=== PATIENT | female | born 1960 | race Caucasian/White ===

== ENCOUNTER 2016-08-06 08:07 | Emergency (ER) | payer OTHER ==
[~2016-08-06] VITALS: Ht 162.6 cm; Wt 65.0 kg
[~2016-08-06 08:07] MED LIST: IBUP-232 PO; PERC10TA27 PO; PROM25SU8 PO; TAMS0.4C67 PO; Z.0.NO CURRENT MEDS
[2016-08-06 08:12] VITALS: BP 121/80; PULSE 101; RESP 14; TEMP 98.2; O2SAT 94
[2016-08-06] MEDS ORDERED: LISI2.5T3 PO (08:28)
[2016-08-06] MEDS ORDERED: OXYB5TAB10 PO (08:28)
[2016-08-06] MEDS ORDERED: KETO10 PO (08:28)
[2016-08-06] MEDS ORDERED: TAMS0.4C4 PO (08:28)
[2016-08-06] MEDS ORDERED: SODIUM CHLOR 0.9% 1000 ML INJ 1,000 ML IV SCH (08:40)
[2016-08-06] MEDS ORDERED: SODIUM CHLORIDE 0.9% FLUSH 5 ML FLUSH IVF PRN (08:45)
[2016-08-06] MEDS ORDERED: MORPHINE SULFATE 4 MG/ML INJ IV PUSH ONE (08:45)
[2016-08-06] MEDS ORDERED: KETOROLAC TROMETHAMINE 30 MG/ML (IVP) VIAL IVP ONE (08:45)
[2016-08-06] MEDS ORDERED: ONDANSETRON HCL 4 MG/2 ML VIAL IVP ONE (08:45)
--- NOTE | 2016-08-06 08:45 | PD ---
HPI Chief Complaint: Flank/Kidney Pain Time Seen by Provider: 08:21 Travel History International Travel<30 days: No Contact w/Intl Traveler<30days: No Traveled to known affect area: No History of Present Illness HPI The patient is a 56-year-old female who presents emergency department for abdominal pain. The patient is a 2 day history of abdominal pain is located in the right lower quadrant and is assisted with nausea, no vomiting. Last bowel movement was yesterday, normal. The patient does note decreased appetite, last meal was last night. The patient was evaluated at urgent care yesterday, had a UA which revealed hematuria and was diagnosed with possible kidney stone. The patient was prescribed Toradol, however, continues to have pain. Pain is currently 8 out of 10, intermittent, sharp, and located in the right lower quadrant. The patient does note intermittent chills without any actual fever. The patient does have a history of nephrolithiasis. Previous abdominal surgeries include cholecystectomy. The patient's primary physician is Dr. Hardy. [facility] Past Medical History Hypertension: Yes Kidney Stones: Yes ?: Not Past Surgical History Cholecystectomy: Yes Social History Alcohol Use: No Tobacco Use: No Allergies-Medications (Allergen,Severity, Reaction): Coded Allergies: Iohexol (OMNIPAQUE) (Unverified Allergy, Unknown, 08/06/16) Reported Meds & Prescriptions Reported Meds & Active Scripts Active Reported Tamsulosin (Tamsulosin HCl) 0.4 Mg Cap 0.4 Mg PO HS Ketorolac (Ketorolac Tromethamine) 10 Mg Tab 10 Mg PO Q6HR PRN Ditropan (Oxybutynin Chloride) 5 Mg Tab 5 Mg PO Q12HR Lisinopril 2.5 Mg Tab 2.5 Mg PO DAILY Review of Systems Except as stated in HPI: all other systems reviewed are Neg General / Constitutional: Positive: Chills, No: Fever Cardiovascular: No: Chest Pain or Discomfort Respiratory: No: Shortness of Breath Gastrointestinal: Positive: Nausea, Abdominal Pain, No: Vomiting, Diarrhea Genitourinary: Positive: Dysuria, Hematuria Physical Exam Narrative GENERAL: Awake, alert, pleasant 56-year-old female who appears her stated age and is in no acute respiratory distress. SKIN: Warm and dry. HEAD: Atraumatic. Normocephalic. EYES: No injection or drainage. ENT: No nasal bleeding or discharge. Mucous membranes pink and moist. NECK: Trachea midline. No JVD. CARDIOVASCULAR: Regular rate and rhythm. No murmur appreciated. RESPIRATORY: No accessory muscle use. Clear to auscultation. Breath sounds equal bilaterally. GASTROINTESTINAL: Abdomen soft, tender palpation right lower quadrant. No rebound tenderness, guarding, or rigidity. Negative obturator. Negative heel tap. Back: No CVA tenderness. MUSCULOSKELETAL: No obvious deformities. No clubbing. No cyanosis. No edema. NEUROLOGICAL: Awake and alert. No obvious cranial nerve deficits. Motor grossly within normal limits. Normal speech. PSYCHIATRIC: Appropriate mood and affect; insight and judgment normal. Data Data Last Documented VS Vital Signs Date Time Temp Pulse Resp B/P Pulse Ox O2 Delivery O2 Flow Rate FiO2 08/06/16 09:05 99 Room Air 08/06/16 08:12 98.2 101 14 121/80 Orders Complete Blood Count With Diff (08/06/16 08:40) Comprehensive Metabolic Panel (08/06/16 08:40) Lipase (08/06/16 08:40) Urinalysis - C+S If Indicated (08/06/16 08:40) Ct Abd/Pel W/O Iv Contrast (08/06/16 08:40) Iv Access Insert/Monitor (08/06/16 08:40) Ecg Monitoring (08/06/16 08:40) Oximetry (08/06/16 08:40) Morphine Inj (Morphine Inj) (08/06/16 08:45) Ondansetron Inj (Zofran Inj) (08/06/16 08:45) Sodium Chlor 0.9% 1000 Ml Inj (Ns 1000 M (08/06/16 08:40) Sodium Chloride 0.9% Flush (Ns Flush) (08/06/16 08:45) Ketorolac Inj (Toradol Inj) (08/06/16 08:45) Labs Laboratory Tests Test 08/06/16 08/06/16 08:30 08:49 Urine Color YELLOW Urine Turbidity CLEAR Urine pH 6.0 Urine Specific [place] 1.011 Urine Protein 30 mg/dL Urine Glucose (UA) NEG mg/dL Urine Ketones NEG mg/dL Urine Occult Blood LARGE Urine Nitrite NEG Urine Bilirubin NEG Urine Leukocyte Esterase NEG Urine RBC 4-9 /hpf Urine WBC 3-5 /hpf Urine Squamous Epithelial 0-5 /hpf Cells Urine Bacteria OCC /hpf Urine Mucus FEW /lpf Microscopic Urinalysis Comment CULT NOT INDICATED White Blood Count 7.9 TH/MM3 Red Blood Count 4.81 MIL/MM3 Hemoglobin 14.6 GM/DL Hematocrit 42.5 % Mean Corpuscular Volume 88.3 FL Mean Corpuscular Hemoglobin 30.3 PG Mean Corpuscular Hemoglobin 34.3 % Concent Red Cell Distribution Width 12.6 % Platelet Count 192 TH/MM3 Mean Platelet Volume 8.6 FL Neutrophils (%) (Auto) 83.4 % Lymphocytes (%) (Auto) 10.1 % Monocytes (%) (Auto) 5.1 % Eosinophils (%) (Auto) 0.1 % Basophils (%) (Auto) 1.3 % Neutrophils # (Auto) 6.5 TH/MM3 Lymphocytes # (Auto) 0.8 TH/MM3 Monocytes # (Auto) 0.4 TH/MM3 Eosinophils # (Auto) 0.0 TH/MM3 Basophils # (Auto) 0.1 TH/MM3 CBC Comment DIFF FINAL Differential Comment Sodium Level 140 MEQ/L Potassium Level 3.8 MEQ/L Chloride Level 101 MEQ/L Carbon Dioxide Level 28.6 MEQ/L Anion Gap 10 MEQ/L Blood Urea Nitrogen 15 MG/DL Creatinine 0.97 MG/DL Estimat Glomerular Filtration 60 ML/MIN Rate Random Glucose 148 MG/DL Calcium Level 9.5 MG/DL Total Bilirubin 1.0 MG/DL Aspartate Amino Transf 25 U/L (AST/SGOT) Alanine Aminotransferase 23 U/L (ALT/SGPT) Alkaline Phosphatase 83 U/L Total Protein 8.0 GM/DL Albumin 4.2 GM/DL Lipase 117 U/L [facility] Medical Decision Making Medical Screen Exam Complete: Yes Emergency Medical Condition: Yes Medical Record Reviewed: Yes Interpretation(s) Laboratory Tests Test 08/06/16 08/06/16 08:30 08:49 Urine Color YELLOW Urine Turbidity CLEAR Urine pH 6.0 Urine Specific [place] 1.011 Urine Protein 30 mg/dL Urine Glucose (UA) NEG mg/dL Urine Ketones NEG mg/dL Urine Occult Blood LARGE Urine Nitrite NEG Urine Bilirubin NEG Urine Leukocyte Esterase NEG Urine RBC 4-9 /hpf Urine WBC 3-5 /hpf Urine Squamous Epithelial 0-5 /hpf Cells Urine Bacteria OCC /hpf Urine Mucus FEW /lpf Microscopic Urinalysis Comment CULT NOT INDICATED White Blood Count 7.9 TH/MM3 Red Blood Count 4.81 MIL/MM3 Hemoglobin 14.6 GM/DL Hematocrit 42.5 % Mean Corpuscular Volume 88.3 FL Mean Corpuscular Hemoglobin 30.3 PG Mean Corpuscular Hemoglobin 34.3 % Concent Red Cell Distribution Width 12.6 % Platelet Count 192 TH/MM3 Mean Platelet Volume 8.6 FL Neutrophils (%) (Auto) 83.4 % Lymphocytes (%) (Auto) 10.1 % Monocytes (%) (Auto) 5.1 % Eosinophils (%) (Auto) 0.1 % Basophils (%) (Auto) 1.3 % Neutrophils # (Auto) 6.5 TH/MM3 Lymphocytes # (Auto) 0.8 TH/MM3 Monocytes # (Auto) 0.4 TH/MM3 Eosinophils # (Auto) 0.0 TH/MM3 Basophils # (Auto) 0.1 TH/MM3 CBC Comment DIFF FINAL Differential Comment Sodium Level 140 MEQ/L Potassium Level 3.8 MEQ/L Chloride Level 101 MEQ/L Carbon Dioxide Level 28.6 MEQ/L Anion Gap 10 MEQ/L Blood Urea Nitrogen 15 MG/DL Creatinine 0.97 MG/DL Estimat Glomerular Filtration 60 ML/MIN Rate Random Glucose 148 MG/DL Calcium Level 9.5 MG/DL Total Bilirubin 1.0 MG/DL Aspartate Amino Transf 25 U/L (AST/SGOT) Alanine Aminotransferase 23 U/L (ALT/SGPT) Alkaline Phosphatase 83 U/L Total Protein 8.0 GM/DL Albumin 4.2 GM/DL Lipase 117 U/L CT of the abdomen and pelvis reveals probable 3 mm obstructing stone at the right ureterovesical junction with mild perinephric stranding and hydronephrosis. Other sources of obstruction cannot be entirely excluded. Differential Diagnosis Differential diagnoses includes nephrolithiasis, appendicitis, diverticulitis, pyelonephritis, hydronephrosis. Narrative Course IV was established, labs are drawn and sent, and the patient was placed on cardiac telemetry monitoring and continuous pulse oximetry monitoring. The patient was administered Toradol, morphine, Zofran, and IV fluids. UA was sent to lab. CT of the abdomen and pelvis without IV contrast was ordered to evaluate for possible nephrolithiasis/appendicitis. UA reveals large blood. White count is normal. CT of the abdomen and pelvis reveals a 3 mm stone at the right ureterovesical junction. The patient was reevaluated at 9:50 AM, her pain is significantly improved. Patient was already prescribed Toradol and Flomax, I will add pain medication, hydrocodone. The patient is advised to follow-up with urology if symptoms persist. Diagnosis Primary Impression: Nephrolithiasis Patient Instructions: General Instructions Additional Instructions: Medications as directed. Follow-up with urology if symptoms persist or return. Please provide the patient a copy of her lab results and CT results at discharge. Med/Other Pt SpecificInfo: Prescription(s) given Scripts Hydrocodone-Acetaminophen ([place])5-325 mg Tab1 Tab PO Q6H PRN (PAIN) #20 TAB Ref 0 Prov:Sandeep Alejandra MD 08/06/16 Disposition: DISCHARGE HOME Condition: Stable Sandeep Alejandra MD Aug 06, 2016 08:45
[2016-08-06 09:00] LABS: BLOOD, URINE LARGE (NEG); GLUCOSE,URINE NEG (NEG); KETONE, URINE NEG (NEG); NITRITE,URINE NEG (NEG)
[2016-08-06 09:01] LABS: URINE COLOR YELLOW (YELLW/STRAW)
[2016-08-06 09:05] VITALS: O2SAT 99
[2016-08-06 09:06] LABS: AUTOMATED NEUTROPHIL # 6.5 TH/MM3 (1.8-7.7); BASOPHIL # 0.1 TH/MM3 (0-0.2); BASOPHIL % 1.3 % (0.0-2.0); EOSINOPHIL % 0.1 % (0.0-4.0); HEMATOCRIT 42.5 % (35.0-46.0); HEMO FLAGS DIFF FINAL; LYMPH % 10.1 % (9.0-44.0); LYMPHOCYTE # 0.8 TH/MM3 (1.0-4.8); MEAN CELL VOLUME 88.3 FL (80.0-100.0); MEAN CORPUSCULAR HEMOGLOBIN 30.3 PG (27.0-34.0); MEAN CORPUSCULAR HGB CONC 34.3 % (32.0-36.0); MONO % 5.1 % (0.0-8.0); NEUT % 83.4 % (16.0-70.0); PLATELET COUNT 192 TH/MM3 (150-450); RED BLOOD COUNT 4.81 MIL/MM3 (4.00-5.30); RED CELL DISTRIBUTION WIDTH 12.6 % (11.6-17.2); WHITE BLOOD COUNT 7.9 TH/MM3 (4.0-11.0)
[2016-08-06 09:13] LABS: MUCUS URINE FEW /lpf (OCC); SQUAMOUS EPITHELIAL CELL URINE 0-5 /hpf (0-5)
[2016-08-06 09:14] LABS: BACTERIA, URINE OCC /hpf; COMMENT (UR) CULT NOT INDICATED; CULTURE IF INDICATED CULT NOT INDICATED
--- NOTE | 2016-08-06 09:36 | RADHPO ---
EXAM DATE/TIME: 08/06/2016 08:56 [place] COMPARISON: CT ABDOMEN & PELVIS W/O CONTRAST, July 23, 2012, 23:10. INDICATIONS : Right lower quadrant pain. Micro hematuria. Evaluate for renal stone. ORAL CONTRAST: No oral contrast ingested. RADIATION DOSE: 11.90 CTDIvol (mGy) MEDICAL HISTORY : Hypertension. Renal calculi. SURGICAL HISTORY : Cholecystectomy. ENCOUNTER: Initial ACUITY: 3 days PAIN SCALE: 8/10 LOCATION: Right lower quadrant TECHNIQUE: Volumetric scanning of the abdomen and pelvis was performed. Using automated exposure control and ad justment of the mA and/or kV according to patient size, radiation dose was kept as low as reasonably achievable to obtain optimal diagnostic quality images. FINDINGS: The lung bases are clear. Portion of liver and spleen identified are free of focal defects. The left kidney is unremarkable. The right kidney shows some mild hydronephrosis with perinephric stranding. There is a dilated right ureter extending down to what I think is a tiny stone at the right ureterovesical junction. There a re associated phleboliths in the pelvis as well. Other causes of obstruction cannot be entirely excluded. Pelvic contents are otherwise unremarkable. CONCLUSION: 1. Probable 3 mm obstructing stone at the right ureterovesical junction with mild perinephric strand ing and hydronephrosis. 2. Other sources of obstruction cannot be entirely excluded. Nader Arciniega MD FACR on August 06, 2016 at 9:26 Board Certified Radiologist. This report was verified electronically.
[2016-08-06 09:39] LABS: BLOOD UREA NITROGEN 15 MG/DL (7-18); GLOMERULAR FILTRATION RATE 60 ML/MIN (>89)
[2016-08-06 09:40] LABS: ALKALINE PHOSPHATASE 83 U/L (45-117); ALT (GPT) 23 U/L (10-53); ANION GAP 10 MEQ/L (5-15); AST (GOT) 25 U/L (15-37); BICARBONATE 28.6 MEQ/L (21.0-32.0); CHLORIDE 101 MEQ/L (98-107); POTASSIUM 3.8 MEQ/L (3.5-5.1); SODIUM (NA) 140 MEQ/L (136-145)
[2016-08-06] MEDS ORDERED: NORC5TAB PO (09:53)
== END 2016-08-06 10:19 | disposition home or self-care (01) ==
LOC: PHED 08:07
DX: N20.0 Calculus of kidney (principal); I10 Essential (primary) hypertension; Z87.442 Personal history of urinary calculi; R31.29 Other microscopic hematuria
CPT/HCPCS: 74176; 80053; 81001; 83690; 85025; 96374; 96375; 99284; J1885; J2270; J2405; J7030